=== PATIENT | female | born 1980 | race Two or more races ===

== ENCOUNTER 2017-05-28 09:24 | Emergency (ER) | payer OTHER ==
[~2017-05-28] VITALS: Ht 165.1 cm; Wt 81.2 kg
[~2017-05-28 09:24] MED LIST: FLOVENT 110MCG7.9 GM IH; PROVENTIL3 ML/2.5 M IH; SMZ-TMP DS 800-1 TAB PO; SYNTHROID125 MCG PO; TOPROL XL25 MG PO; XELJANZ XR11 MG; ZITHROMAX500 MG PO; ZYNCOF 20-400120 ML PO
== END 2017-05-28 15:38 | disposition home or self-care (01) ==
LOC: ER 09:24
DX: R10.12 Left upper quadrant pain (principal)